=== PATIENT | male | born 1970 | race Caucasian/White ===

== ENCOUNTER 2024-04-10 12:53 | Observation (INO) | payer OTHER, SELFPAY ==
[2024-04-10] VITALS (7 sets, daily range): BP systolic 132–152; BP diastolic 88–99; PULSE 75–103; RESP 18; TEMP 36.4–36.6; O2SAT 98–99; BMI 30.4
[2024-04-10 15:45] LABS: Absolute Neutrophil Count 10.1 X10^3/uL (2.0-7.7); Basophil# 0.02 X10^3/uL; Basophil% 0.2 % (0-1); Eosinophil# 0.05 X10^3/uL; Eosinophils% 0.4 % (0-5); Hematocrit 42.4 % (40-54); Hemoglobin 14.6 g/dL (13.0-16.5); Lymphocyte % 10.6 % (19-41); Mean Corp Hgb Conc 34.4 g/dL (32-36); Mean Corpuscular Hgb 30.1 pg (27.0-32.0); Mean Corpuscular Volume 87.4 fL (80-94); Mean Platelet Vol. 9.2 fl (6.2-12.0); Monocyte# 1.63 X10^3/uL; Monocyte% 12.3 % (0-10); NRBC Flagged by Analyzer 0 % (0-5); Neutrophil # 10.07 X10^3/uL (2.7-7.7); POSITIVE DIFFERENTIAL YES; Platelet Count 225 K/mm3 (150-450); RBC Distribution Width CV 12.4 % (11.6-14.6); Red Blood Count 4.85 M/mm3 (4.6-6.2); White Blood Count 13.2 K/mm3 (4.4-11.0)
[2024-04-10 16:06] LABS: ALB/GLOB Ratio 0.9 RATIO (0.9-2.4); AST(SGOT) 13 U/L (15-37); Alanine Aminotransfer ALT/SGPT 25 U/L (16-61); Albumin, Serum 3.6 g/dL (3.2-5.0); Alkaline Phosphatase 122 U/L (45-117); Anion Gap 10 (5-15); BUN 16 mg/dL (7-18); BUN/Creat Ratio 19.1 RATIO (10-20); Calcium,Total 8.9 mg/dL (8.5-10.1); Chloride 104 mmol/L (98-107); Creatinine, Serum 0.84 mg/dL (0.70-1.30); EST Glomerular Filtration Rate 101 mL/min (>60); Est Glom Filt Rate - Afr Amer 122 mL/min (>60); Glucose 90 mg/dL (74-106); Potassium 3.7 mmol/L (3.5-5.1); Protein, Total 7.6 g/dL (6.4-8.2); Sodium Level 135 mmol/L (136-145)
[2024-04-10 16:14] LABS: Mucous, Urine 0 SEEN /hpf (<or=2+); Squamous Epithelial Cells - UA 0 SEEN /hpf (0-5)
[2024-04-10 16:16] LABS: Color, Urine Yellow (Yellow); Glucose, Dipstick Normal (Normal); Ketone-Dipstick 5 mg/dl (Negative); Leukocyte Esterase-Dipstick Negative /ul (Negative); Nitrite-Dipstick Negative (Negative); Occult Blood-Urine 25 /ul (Negative); Protein-Dipstick 30 mg/dl (Negative); Specific Gravity, Urine 1.015 (1.002-1.030); Urine Bilirubin Dipstick Negative (Negative); Urine Clarity Sl. Cloudy (Clear); Urine Urobilinogen 1 mg/dl (Normal)
--- NOTE | 2024-04-10 16:16 | CT_ITS ---
We are attempting to reach an attending provider to discuss findings. An addendum with communication details will be sent when the communication is complete. STUDY: CT ABDOMEN AND PELVIS WITH CONTRAST REASON FOR EXAM: Male, 54 years old. RLQ pain, distention, vomiting RADIATION DOSAGE (If Supplied By Facility): CTDIvol = ( 14.82 ) mGy, DLP = ( 1130.35 ) mGycm TECHNIQUE: Transaxial images were obtained from the dome of the diaphragm to the symphysis pubis without oral contrast. IV 100mL Isovue-300 was administered. Sagittal and coronal images were reconstructed. Individualized dose optimization techniques were used for this CT. The protocol utilizes one or more of the following dose reduction techniques: automated exposure control, adjustment of mA and/or kV according to patient size,and/or use of iterative reconstruction technique. COMPARISON: None. FINDINGS: Bibasilar subsegmental atelectasis. The visualized portions of the heart are within normal limits. Normal liver. Normal gallbladder and extrahepatic biliary system. Normal spleen. Normal pancreas. Normal bilateral adrenal glands. Normal right kidney. Normal left kidney. Small hiatal hernia. Air-fluid levels small bowel. Air-fluid levels in the colon. There is a tubular, thick-walled appendix (>7mm), consistent with acute appendicitis. Calcified plaque along the aorta and its branches. Retroaortic left renal vein. Normal inferior vena cava. Normal retroperitoneum. Normal urinary bladder. Surgical clips anterior to the bladder noted. Fat-containing left inguinal hernia. Normal abdominal wall. Normal osseous structures. CT/Abdomen/Pelvis W IV Cont ONLY IMPRESSION: Acute appendicitis without evidence of perforation or abscess. Electronically Signed: Dom Fragoso MD at 18:04 EDT ,
[2024-04-10 16:18] LABS: Differential Indicated SCAN CRITERIA MET
[2024-04-10 16:22] LABS: Bacteria RARE /hpf (None Seen); Red Blood Cells-Urine 0-5 SEEN /hpf (0-5); White Blood Cells 0-5 SEEN /hpf (0-5)
[2024-04-10] MEDS: morphine 8 MG/ML Syringe 6 MG IV (16:24)
[2024-04-10] MEDS: 0.9% Normal Saline (1000mL) 1,000 ML 150 ML IV (16:24)
[2024-04-10] MEDS: Ondansetron 4 MG/2 ML Vial IV (16:24)
--- NOTE | 2024-04-10 16:26 | ED.VIS.GI ---
HPI HPI - GI History of Present Illness Chief Complaint: Abd Pain Informant: patient Narrative Narrative: Patient is a 54-year-old male with history of (he believes left) inguinal hernia repair presenting with worsening abdominal pain for the past 2 days. Patient states that at 2:30 AM on Wednesday morning he woke up because the stomach felt weird and he had vomiting. He is small bowel movement this time. He notes since then he has been having progressively worsening abdominal pain mostly in his right lower quadrant. His abdomen feels distended. He tried a suppository today and only has slight bowel movement. Does note his urine has been darker. He took some Advil for symptoms with no significant relief. He has felt a little feverish but his is checked his temperature and he is not actually had a fever. Today he has had increased pain. He states every 45 minutes he had waves of sharp pain. Is in his right lower quadrant does not radiate. He is continue to have nausea. He notes that 3 weeks ago he had an episode of what he believes to be food poisoning as he had multiple signs of vomiting and some mild diarrhea. He thought maybe that is what was happening again today. No other complaints or concerns reported at this time. [facility] Home Medications ?Medication ?Instructions ?Recorded ?Last Taken ?Type NK 04/10/24 Unknown History Allergy/AdvReac Type Severity Reaction Status Date / Time No Known Allergies Allergy Verified 04/10/24 12:57 Surgical History H/O left inguinal hernia repair Social History Smoking Status: Never smoker ROS ROS ED Constitutional Constitutional ED: Reports sweats; Denies chills or fever(s) Cardiovascular Cardiovascular: Denies chest pain Respiratory/Chest Respiratory/Chest: Denies cough Gastrointestinal Gastrointestinal: Reports abdominal pain, constipation, nausea and vomiting; Denies diarrhea or melena Genitourinary Genitourinary ED: Denies dysuria, hematuria or urinary frequency Musculoskeletal Musculoskeletal: Denies arthralgias or myalgias Integumentary Denies rash Neurologic Neurologic: Denies headache(s), paresthesias or weakness Hematologic/Lymphatic Hematologic/Lymphatic: Denies easy bleeding EXAM Physical Exam Const Vital Signs: 04/10/24 12:54 04/10/24 14:54 04/10/24 16:00 Temperature 97.9 F Temperature Source Oral Pulse Rate 103 H 101 H 76 Respiratory Rate 18 18 18 Blood Pressure 152/92 H 138/96 H 142/99 H Blood Pressure Mean 112 110 113 Pulse Ox 98 99 99 Oxygen Delivery Method Room Air 04/10/24 18:00 04/10/24 20:00 04/10/24 22:00 Temperature Temperature Source Pulse Rate 87 75 Respiratory Rate 18 18 Blood Pressure 132/89 H 134/97 H 134/88 H Blood Pressure Mean 103 109 103 Pulse Ox 98 Oxygen Delivery Method 04/10/24 23:00 Temperature 97.5 F L Temperature Source Pulse Rate 75 Respiratory Rate 18 Blood Pressure 134/88 H Blood Pressure Mean 103 Pulse Ox 98 Oxygen Delivery Method Positive well nourished and well developed General Appearance ED: well developed and NAD; Negative for pallor HEENT Reports dry mucous membranes Mouth ED: Yes dry mucous membranes Mouth: dry mucous membranes Eyes PERRL Neck supple Resp normal respiratory effort and clear to auscultation bilaterally Cardio regular rhythm Rate: tachycardic GI GI Narrative: Distended abdomen. Positive rebound tenderness. No rigidity. Hypoactive bowel sounds overall with high-pitched bowel sounds noted on the left lower quadrant. No overlying skin changes appreciated. Extremity full ROM General Extremety ED: Negative for edema General Extremity: Negative for edema Neuro Sensorium / Orientation: alert, oriented to person, oriented to place and oriented to time Motor Exam: Negative for general weakness Psych mental status grossly normal and thought process normal Skin no wounds General Skin Exam: Negative for jaundice or pallor MDM MDM MDM Narrative Medical decision making narrative: Patient is evaluated for worsening right lower quadrant abdominal pain. Patient has a distended peritoneal abdomen. Differential includes small bowel obstruction, perforated appendicitis, acute appendicitis, colitis, volvulus and ischemic bowel. I did add on a lactate in addition to protocol orders CBC and CMP. Patient does have a leukocytosis of 13.2. Urinalysis does show 5 ketones but is not consistent with infection. CT of the abdomen and pelvis is concerning for acute appendicitis without evidence of perforation or abscess. Zosyn started for the patient. Discussed the case with surgery on-call, Dr. Jiang. She is concerned that this is not acute appendicitis but in fact sometimes of terminal ileitis or infectious/inflammatory process of the cecum. She request a CT of the abdomen and pelvis with oral contrast to better evaluate the area. In addition patient is noted to have quite enlarged bladder on CT. Bladder scan after patient voided 400 cc shows approximately 800 cc. Ball catheter is placed. Turns out patient has been having symptoms of BPH with urinary frequency and hesitancy for the past year. Patient has over 600 cc of fluid out after Ball catheter placed. Repeat CT continues to show acute inflammation of the right lower quadrant with no perforation or abscess. Differential still includes inflammatory bowel disease and appendicitis. There is an ileus. General surgery at this time does not feel that this is an acute surgical process and recommends treatment with antibiotics, admission to medicine and also GI consult. Case discussed with Dr. Spencer as well as Dr. Tan, hospitalist. Patient is given further pain control with morphine and Toradol in the emergency room. Is placed on maintenance fluids. Discussed case and plan of care with patient and his . Lab Data Attestation: I reviewed the patient's lab results. Labs: Laboratory Results - last 24 hr 04/10/24 04/10/24 04/10/24 15:25 16:05 16:09 WBC 13.2 H RBC 4.85 Hgb 14.6 Hct 42.4 MCV 87.4 MCH 30.1 MCHC 34.4 RDW Std Deviation 40.0 RDW Coeff of Citlali 12.4 Plt Count 225 MPV 9.2 Immature Gran % (Auto) 0.500 Neut % (Auto) 76.0 H Lymph % (Auto) 10.6 L [place] % (Auto) 12.3 H Eos % (Auto) 0.4 Baso % (Auto) 0.2 Absolute Neuts (auto) 10.1 H Absolute Lymphs (auto) 1.40 Nucleated RBC % 0 Diff Path Review May foll Sodium 135 L Potassium 3.7 Chloride 104 Carbon Dioxide 22.0 Anion Gap 10 BUN 16 Creatinine 0.84 Estim Creat Clear Calc 107.50 Est GFR (MDRD) Af Amer 122 Est GFR (MDRD) Non-Af 101 BUN/Creatinine Ratio 19.1 Glucose 90 Lactic Acid 1.0 Calcium 8.9 Magnesium 2.1 Total Bilirubin 1.20 H AST 13 L ALT 25 Alkaline Phosphatase 122 H Total Protein 7.6 Albumin 3.6 Globulin 4.0 Albumin/Globulin Ratio 0.9 Lipase 21 Urine Color Yellow Urine Clarity Sl. Cloudy Urine pH 6.0 Ur Specific [facility] 1.015 Urine Protein 30 H Urine Glucose (UA) Normal Urine Ketones 5 H Urine Occult Blood 25 H Urine Nitrite Negative Urine Bilirubin Negative Urine Urobilinogen 1 H Ur Leukocyte Esterase Negative Urine RBC 0-5 SEEN Urine WBC 0-5 SEEN Ur Squamous Epith Cells 0 SEEN Urine Bacteria RARE Urine Mucus 0 SEEN Radiography Diagnostic Testing: Clinical Impression(s) from Imaging Studies Abdomen/Pelvis CT 04/10/24 16:16 IMPRESSION: Acute appendicitis without evidence of perforation or abscess. Electronically Signed: Dom Fragoso MD at 18:04 EDT Reading Location ID and State: [address] [place] [address] Tel , Service support , ADDENDUM: 04/10/24 1817 IMPRESSION: Acute appendicitis without evidence of perforation or abscess. N.B. : The above Results were Read Back by Dom Fragoso MD to Shyann Lorenz DO, and understanding confirmed on 04/10/2024 18:10:13 (ET). Electronically Signed: Dom Fragoso MD at 18:04 EDT Reading Location ID and State: [employer] [place] Tel , Service support , ADDENDUM: 04/10/24 1847 IMPRESSION: undefined Abdomen CT 04/10/24 21:10 IMPRESSION: Acute inflammation right lower quadrant again noted essentially unchanged. Suboptimal opacification of the appendiceal lumen. Repeat scans through the right lower quadrant may be helpful. No evidence of perforation or abscess. Differential considerations still include both inflammatory bowel disease and appendicitis. Ileus. Electronically Signed: Dom Fragoso MD at 22:43 EDT Reading Location ID and State: [employer] / [place] Tel , Service support , Management Discussion w/another healthcare provider: Hospitalist and Educational Consultant Discharge Plan Triage Chief Complaint: Abd Pain ED Provider: Shyann Lorenz Dx/Rx/DC Orders Clinical Impression: Appendicitis, Ileitis, terminal, Urinary retention, Leukocytosis Primary Care Provider: Care Physician,No Primary Disposition Disposition: Acute Care Hospital [facility]
[2024-04-10 16:54] LABS: Lipase 21 U/L (13-75)
[2024-04-10] MEDS: Piperacil/Tazobactam 3.375 GM in 0.9% Normal Saline (50mL MB+) 50 ML IV (17:31)
--- NOTE | 2024-04-10 21:10 | CT_ITS ---
STUDY: CT ABDOMEN AND PELVIS WITHOUT CONTRAST REASON FOR EXAM: Male, 54 years old. RLQ pain, further eval appy RADIATION DOSAGE (If Supplied By Facility): CTDIvol = ( 10.62 ) mGy, DLP = ( 628.76 ) mGycm TECHNIQUE: Transaxial images were obtained from the dome of the diaphragm to the symphysis pubis without oral contrast, and without intravenous contrast. Sagittal and coronal images were reconstructed. Individualized dose optimization techniques were used for this CT. The protocol utilizes one or more of the following dose reduction techniques: automated exposure control, adjustment of mA and/or kV according to patient size,and/or use of iterative reconstruction technique. COMPARISON: 4:[address] abdomen and pelvis FINDINGS: The visualized lung bases are unremarkable. The visualized portions of the heart are within normal limits. Normal liver. Gallbladder sludge. Normal spleen. Normal pancreas. Normal bilateral adrenal glands. Normal right kidney. Normal left kidney. Small hiatal hernia. Oral contrast within the Small bowel with multiple air-fluid levels. Multiple air-fluid levels noted in the small bowel. There is narrowing of the ileum which may represent a stricture. The distal ileum appears circumferentially thickened. There is faint oral contrast in the cecum. Appendix appears somewhat enlarged and is not entirely opacified. There is local extensive stranding of the fat. There may be a small amount of free fluid in the lateral conal fascia. Multiple air-fluid levels are noted throughout the colon. Calcified plaque along the aorta and its branches. Normal inferior vena cava. Normal retroperitoneum. Retroaortic left renal vein. Bladder is decompressed. Oral contrast is noted in the bladder. Fat-containing bilateral inguinal hernias. Surgical clips anterior pelvic wall. Normal abdominal wall. Normal osseous structures. CT/Abdomen/Pel W ORAL Cont Only IMPRESSION: Acute inflammation right lower quadrant again noted essentially unchanged. Suboptimal opacification of the appendiceal lumen. Repeat scans through the right lower quadrant may be helpful. No evidence of perforation or abscess. Differential considerations still include both inflammatory bowel disease and appendicitis. Ileus. Electronically Signed: Dom Fragoso MD at 22:43 EDT ,
--- NOTE | 2024-04-10 21:23 | CON.PCM.SX_ITS ---
Assessment & Plan Assessment/Plan (1) Ileitis, terminal: (2) Appendicitis: (3) Urinary retention: PLAN: Plan Currently getting a CT scan with p.o. contrast see if that helps better identify the inflammation to discern whether this is more than just acute appendicitis as the terminal ileum as well as cecum are inflamed. Did review the for CT and abdomen pelvis with the patient and his . Discussed that currently I think the cecum and terminal ileum were also inflamed so likely the process may be larger process than just appendicitis. Also discussed that how we treat appendicitis surgically is staple across the base and with inflammation of the cecum as well as the terminal ileum that would not be able to be done and typically we treated with antibiotics as if we stapled across inflamed tissue it would dehisce/leak. Patient and his are agreeable with plan. May also consider having GI see the patient depending on repeat CT read but would continue IV Zosyn. Addendum: Patient's repeat CAT scan with p.o. contrast does again shows a thickening of the cecum as well as terminal ileum and appendix. Recommend conservative management and GI consult. Sulema Jiang M.D. Pager: [phone] [facility] [address] [place] [address], [facility], [address] [place] [address] Office: [phone] HPI Consult Data Date of Consult: 04/11/24 HPI Narrative HPI Narrative: TOMAS CEE, is a 54 M who presents to the ER due to right lower quadrant pain. Patient states started having pain at 2 AM on Wednesday woke him up and he did have vomiting x 1. Patient states that the pain may have been more left lower quadrant that time. Patient states that he did not eat much on Wednesday or Wednesday. Patient rated the pain as 6/10 for Wednesday. Currently states that the pain is more in the right lower quadrant comes in waves can be up to 10/10. Patient still has not been eating much. Denies any nausea or vomiting currently. Patient is never had previous colonoscopy. Patient denies any family history of colon cancer or Crohn's disease or ulcerative colitis. Patient CT abdomen pelvis which initially was called acute appendicitis however on my read the terminal ileum was also thickened along with the cecum. Did discuss with radiologist who agreed there is additional thickening of the cecum and terminal ileum as well. Patient white blood count is 13.2. Did receive Zosyn IV in the ER. Patient also initially thought he was constipated did try a suppository with no results. Patient states he has not really had a bowel movement since this started on Wednesday. Patient states normally has bowel movements daily. Patient denies any current diarrhea as well. Patient CT also showed a distended bladder patient is able to pee about 400 but still had another 5 to 600 cc upon Ball placement. Patient is reports that for the last year he is not able to have a good stream with urination. Previously?years ago?he did go to a urologist at [facility] and they gave him some medication which he did not tolerate unsure what the medication was. [facility] Home Medications ?Medication ?Instructions ?Recorded ?Last Taken ?Type NK 04/10/24 Unknown History Allergy/AdvReac Type Severity Reaction Status Date / Time No Known Allergies Allergy Verified 04/10/24 12:57 Surgical History H/O left inguinal hernia repair Social History Smoking Status: Never smoker ROS Constitutional Constitutional: Reports anorexia ENT HEENT: Denies dysphagia Cardiovascular Cardiovascular: Denies chest pain at rest Respiratory/Chest Respiratory/Chest: Denies cough Gastrointestinal Gastrointestinal: Reports abdominal pain, bloating, constipation and nausea; Denies diarrhea or vomiting Genitourinary Genitourinary: Reports difficulty urinating Musculoskeletal Musculoskeletal: Denies back pain Integumentary Integumentary: Denies jaundice Neurologic Neurologic: Denies focal weakness Psychiatric Psychiatric: Denies depression Endocrine Endocrinology: Denies palpitations Hematologic/Lymphatic Hematologic/Lymphatic: Denies easy bleeding Physical Exam Const alert, oriented x3 and no apparent distress HEENT normocephalic and head/scalp atraumatic Resp normal respiratory effort Cardio regular rate GI soft to palpation Inspection: abdominal distention Palpation: tender RLQ (Equivocal rebound); Negative for guarding Extremity no clubbing, cyanosis or edema Neuro CN's II-XII intact bilaterally Psych mental status grossly normal Lab / Micro Data 04/11/24 06:44 04/11/24 06:44 Labs: Laboratory Results - last 24 hr 04/10/24 15:25: WBC 13.2 H, RBC 4.85, Hgb 14.6, Hct 42.4, MCV 87.4, MCH 30.1, MCHC 34.4, RDW Std Deviation 40.0, RDW Coeff of Citlali 12.4, Plt Count 225, MPV 9.2, Immature Gran % (Auto) 0.500, Neut % (Auto) 76.0 H, Lymph % (Auto) 10.6 L, [place] % (Auto) 12.3 H, Eos % (Auto) 0.4, Baso % (Auto) 0.2, Absolute Neuts (auto) 10.1 H, Absolute Lymphs (auto) 1.40, Nucleated RBC % 0, Diff Path Review October, Sodium 135 L, Potassium 3.7, Chloride 104, Carbon Dioxide 22.0, Anion Gap 10, BUN 16, Creatinine 0.84, Estim Creat Clear Calc 107.50, Est GFR (MDRD) Af Amer 122, Est GFR (MDRD) Non-Af 101, BUN/Creatinine Ratio 19.1, Glucose 90, Calcium 8.9, Total Bilirubin 1.20 H, AST 13 L, ALT 25, Alkaline Phosphatase 122 H, Total Protein 7.6, Albumin 3.6, Globulin 4.0, Albumin/Globulin Ratio 0.9, Lipase 21 04/10/24 16:05: Lactic Acid 1.0 04/10/24 16:09: Urine Color Yellow, Urine Clarity Sl. Cloudy, Urine pH 6.0, Ur Specific [place] 1.015, Urine Protein 30 H, Urine Glucose (UA) Normal, Urine Ketones 5 H, Urine Occult Blood 25 H, Urine Nitrite Negative, Urine Bilirubin Negative, Urine Urobilinogen 1 H, Ur Leukocyte Esterase Negative, Urine RBC 0-5 SEEN, Urine WBC 0-5 SEEN, Ur Squamous Epith Cells 0 SEEN, Urine Bacteria RARE, Urine Mucus 0 SEEN Imaging Radiology Impression Abdomen/Pelvis CT 04/10/24 16:16 IMPRESSION: Acute appendicitis without evidence of perforation or abscess. Electronically Signed: Dom Fragoso MD at 18:04 EDT , ADDENDUM: 04/10/241816 IMPRESSION: Acute appendicitis without evidence of perforation or abscess. N.B. : The above Results were Read Back by Dom Fragoso MD to Shyann Lorenz DO, and understanding confirmed on 04/10/2024 18:10:13 (ET). Electronically Signed: Dom Fragoso MD at 18:04 EDT Reading Location ID and State: [facility] / [place] Tel , Service support , ADDENDUM: 04/10/24 1847 IMPRESSION: undefined Charges/Coding Visit Charges Inpatient E&M: 64865 Init Hosp L3
--- NOTE | 2024-04-10 23:22 | HP.PCM.HOS_ITS ---
HPI - General General Date of Admission: 04/10/24 Date of Service: 04/10/24 Chief Complaint: RLQ abdominal pain since Wednesday morning. HPI Narrative TOMAS CEE, is a 54 M came to ED with sudden onset of right lower quadrant abdominal pain that woke him up with one-time vomiting. The abdominal pain persisted on Wednesday and Wednesday therefore he came to ED. It is 5-6/10 intensity, intermittent, colicky in nature without radiation. Patient had a small bowel movement on Wednesday and Wednesday but not today. Patient had left inguinal surgery in the past. No fever or chills. Denies any previous colonoscopy or EGD. Denies prior GI diagnoses like Crohn's disease, ulcerative colitis, celiac disease or other autoimmune disease Patient is stated about 3 weeks ago he ate lunch in the latter-day and got sick after 3 hours but it got better in next 2 to 3 days. Never was admitted for abdominal pain of the symptoms In ED patient had CT abdomen discussing assessment plan. Seen by surgeon Dr. Jiang and he states cecum and terminal ileum along with appendix is inflamed. Recommended GI consult Social history: Patient does not smoke cigarette but chews nicotine tobacco. Denies drinking alcohol or substance use. Family history: Denies chronic GI disease or autoimmune disease in first-degree family relative. REPLACED BY [facility] Home Medications ?Medication ?Instructions ?Recorded ?Last Taken ?Type NK 04/10/24 Unknown History Allergy/AdvReac Type Severity Reaction Status Date / Time No Known Allergies Allergy Verified 04/10/24 12:57 Surgical History H/O left inguinal hernia repair Social History Smoking Status: Never smoker ROS ROS Narrative Constitutional: Reports acute onset fatigue and weakness. No fever. HEENT: Reports systems reviewed and no addt'l complaints, except as documented Respiratory/Chest: No acute shortness of breath or respiratory distress or wheezing. CVS: No chest pain or pressure or tach Gastrointestinal: Denies GI bleed. Rest as described in HPI. Genitourinary: Incomplete emptying of bladder, acute retention of urine. Denies burning pain. Musculoskeletal: Denies acute joint pain or limited range of motion. No acute injury Neurologic: Denies seizure-like symptoms. skin: No ulcer. No rash Endocrinology: Reports systems reviewed and no addt'l complaints, except as documented Hematologic/Lymphatic: Reports systems reviewed and no addt'l complaints, except as documented Rest 14 ROS are negative except as mentioned in HPI Vital Signs Vital Signs Vital Signs: 04/10/24 12:54 04/10/24 14:54 04/10/24 16:00 Temperature 97.9 F Temperature Source Oral Pulse Rate 103 H 101 H 76 Respiratory Rate 18 18 18 Blood Pressure 152/92 H 138/96 H 142/99 H Blood Pressure Mean 112 110 113 Pulse Ox 98 99 99 Oxygen Delivery Method Room Air 04/10/24 18:00 04/10/24 20:00 04/10/24 22:00 Temperature Temperature Source Pulse Rate 87 75 Respiratory Rate 18 18 Blood Pressure 132/89 H 134/97 H 134/88 H Blood Pressure Mean 103 109 103 Pulse Ox 98 Oxygen Delivery Method Weight Weight: 200 lb 6.4 oz Body Mass Index (BMI) 30.4 Physical Exam Narrative General: Alert, Oriented x3, Cooperative HEENT: Atraumatic, PERRLA, EOMI, Normocephalic Oral: Oral mucosa dry. No Gingival or Mucosal Lesions/ Ulcerations Neck: Supple, No JVD, Negative Carotid Bruits Chest wall/Lungs: Air entry equal in bilateral lung bases. No crepitation/rhonchi Cardiovascular: Regular rate, Regular Rhythm, Normal S1, Normal S2, No M/G/R Abdomen: Tenderness and guarding present in RLQ. Bowel sounds hyperactive : Spontaneous voiding 400 mL but incomplete emptying, 500-600 mL upon Ball catheter placement no renal angle tenderness. No suprapubic tenderness. Extremities: No edema, Capillary Refill Less than 3 Seconds Skin: No rashes, No breakdown Musculoskeletal: No Tenderness to Palpation of Joints or Extremities Neurological: Cranial nerves II-XII grossly intact, DTR 2+/4. No acute focal neurological deficit. Psych/Mental Status: Normal Affect, Appropriate. Results Lab / Micro Data 04/10/24 15:25 04/10/24 15:25 Labs: Laboratory Results - last 24 hr 04/10/24 15:25: WBC 13.2 H, RBC 4.85, Hgb 14.6, Hct 42.4, MCV 87.4, MCH 30.1, MCHC 34.4, RDW Std Deviation 40.0, RDW Coeff of Citlali 12.4, Plt Count 225, MPV 9.2, Immature Gran % (Auto) 0.500, Neut % (Auto) 76.0 H, Lymph % (Auto) 10.6 L, [place] % (Auto) 12.3 H, Eos % (Auto) 0.4, Baso % (Auto) 0.2, Absolute Neuts (auto) 10.1 H, Absolute Lymphs (auto) 1.40, Nucleated RBC % 0, Diff Path Review October, Sodium 135 L, Potassium 3.7, Chloride 104, Carbon Dioxide 22.0, Anion Gap 10, BUN 16, Creatinine 0.84, Estim Creat Clear Calc 107.50, Est GFR (MDRD) Af Amer 122, Est GFR (MDRD) Non-Af 101, BUN/Creatinine Ratio 19.1, Glucose 90, Calcium 8.9, Total Bilirubin 1.20 H, AST 13 L, ALT 25, Alkaline Phosphatase 122 H, Total Protein 7.6, Albumin 3.6, Globulin 4.0, Albumin/Globulin Ratio 0.9, Lipase 21 04/10/24 16:05: Lactic Acid 1.0 04/10/24 16:09: Urine Color Yellow, Urine Clarity Sl. Cloudy, Urine pH 6.0, Ur Specific [place] 1.015, Urine Protein 30 H, Urine Glucose (UA) Normal, Urine Ketones 5 H, Urine Occult Blood 25 H, Urine Nitrite Negative, Urine Bilirubin Negative, Urine Urobilinogen 1 H, Ur Leukocyte Esterase Negative, Urine RBC 0-5 SEEN, Urine WBC 0-5 SEEN, Ur Squamous Epith Cells 0 SEEN, Urine Bacteria RARE, Urine Mucus 0 SEEN Imaging Radiology Impression Abdomen/Pelvis CT 04/10/24 16:16 IMPRESSION: Acute appendicitis without evidence of perforation or abscess. Electronically Signed: Dom Fragoso MD at 18:04 EDT , ADDENDUM: 04/10/241816 IMPRESSION: Acute appendicitis without evidence of perforation or abscess. N.B. : The above Results were Read Back by Dom Fragoso MD to Shyann Lorenz DO, and understanding confirmed on 04/10/2024 18:10:13 (ET). Electronically Signed: Dom Fragoso MD at 18:04 EDT Reading Location ID and State: [facility] / [place] Tel , Service support , ADDENDUM: 04/10/24 1847 IMPRESSION: undefined Abdomen CT 04/10/24 21:10 IMPRESSION: Acute inflammation right lower quadrant again noted essentially unchanged. Suboptimal opacification of the appendiceal lumen. Repeat scans through the right lower quadrant may be helpful. No evidence of perforation or abscess. Differential considerations still include both inflammatory bowel disease and appendicitis. Ileus. Electronically Signed: Dom Fragoso MD at 22:43 EDT , Assessment & Plan Assessment/Plan (1) Ileitis, terminal: (2) Urinary retention: PLAN: Plan This is 54-year-old gentleman being admitted for right lower quadrant abdominal pain for last 3 days along with vomiting and no BM for 1 day 1. Acute inflammation of distal ileum, typhlitis and appendicitis CT abdomen with oral and IV contrast individually reviewed. Shows multiple loops of air distended small bowel loops, inflammation of distal ileum with circumferential thickening, appendix enlarged with mesoappendix infiltration of fat and typhlitis. Patient already evaluated by surgeon and thinks it is more right- sided inflammation as mentioned therefore treat medically with IV antibiotics. GI consult requested. On IV Zosyn. Continue IV fluid. N.p.o. 2. History of left inguinal hernia repair: No clinical issues on left lower quadrant 3. Chronic nicotine use, chews tobacco: Offered nicotine. 4. DVT prophylaxis, moderate risk Lovenox 40 mg subcu daily Living will/advanced directive/end of life care: Patient does not have living will or advanced directive. He does not have daycare power of real estate attorney for health after discussion of benefits/risks procedures involved with full code, DNR CC arrest and DNR CC, the patient opted for full code. Patient does want artificial life support including intubation, tube feed, ventilator and/chest compression, central venous catheter, vasopressor and DC shock if needed Total time spent in [id number] encounter in discussion of advanced directive 17 minutes. Charges/Coding Visit Charges Inpatient E&M: 19146 Init Hosp L3 Procedures Hospitalists Procedures: 96906 Advncd Care Plan 30 Min
[2024-04-10] MEDS: Ketorolac 15 MG/ML Vial IV (23:29)
[2024-04-10] MEDS: Morphine 4 MG/ML Syringe IV (23:30)
[2024-04-10 23:56] LABS: Magnesium 2.1 mg/dL (1.6-2.6)
[2024-04-11 02:22] VITALS: BMI 30.4
[2024-04-11 02:34] VITALS: BP 131/84; PULSE 71; RESP 16; TEMP 36.6; O2SAT 98
[2024-04-11] MEDS: KCL 20MEQ in 0.9% NS 20 MEQ/1,000 ML IV.SOLN. 100 MEQ IV (02:49)
[2024-04-11] MEDS: Pantoprazole Sodium 40 MG in 0.9% Normal Saline (100mL MB+) 100 ML 330 MG IV (02:56)
[2024-04-11] MEDS: Piperacil/Tazobactam 3.375 GM in 0.9% Normal Saline (50mL MB+) 50 ML IV ×2 (05:29→14:27)
[2024-04-11 07:35] LABS: Absolute Lymphocyte Count 1.55 X10^3/uL (0.83-4.51); Absolute Neutrophil Count 6.3 X10^3/uL (2.0-7.7); Basophil# 0.03 X10^3/uL; Basophil% 0.3 % (0-1); Eosinophils% 1.1 % (0-5); Hemoglobin 12.8 g/dL (13.0-16.5); Lymphocyte # 1.55 X10^3/ul (0.83-4.51); Lymphocyte % 16.6 % (19-41); Mean Corp Hgb Conc 34.6 g/dL (32-36); Mean Corpuscular Hgb 30.6 pg (27.0-32.0); Mean Corpuscular Volume 88.5 fL (80-94); Mean Platelet Vol. 9.3 fl (6.2-12.0); Monocyte# 1.29 X10^3/uL; Monocyte% 13.8 % (0-10); NRBC Flagged by Analyzer 0 % (0-5); Neutrophil # 6.31 X10^3/uL (2.7-7.7); Neutrophil % 67.8 % (47-70); Platelet Count 222 K/mm3 (150-450); RBC Distribution Width CV 12.5 % (11.6-14.6); RBC Distribution Width SD 40.3 fl (35.1-43.9); Red Blood Count 4.18 M/mm3 (4.6-6.2); White Blood Count 9.3 K/mm3 (4.4-11.0)
[2024-04-11 07:54] LABS: Anion Gap 7 (5-15); BUN 17 mg/dL (7-18); BUN/Creat Ratio 19.9 RATIO (10-20); Calcium,Total 8.5 mg/dL (8.5-10.1); Chloride 110 mmol/L (98-107); Creatinine, Serum 0.85 mg/dL (0.70-1.30); EST Glomerular Filtration Rate 99 mL/min (>60); Est Glom Filt Rate - Afr Amer 119 mL/min (>60); Estimated Creatinine Clearance 106.29 ml/min; Glucose 84 mg/dL (74-106); Potassium 3.7 mmol/L (3.5-5.1); Sodium Level 139 mmol/L (136-145)
--- NOTE | 2024-04-11 08:34 | PCM.PN.SRG ---
Objective Data Objective Data Vital Signs: Vital Signs Temp Pulse Resp BP Pulse Ox O2 Del Method 97.9 F 71 16 131/84 H 98 Room Air 04/11/24 02:34 04/11/24 02:34 04/11/24 02:34 04/11/24 02:34 04/11/24 02:34 04/11/24 02:34 Oxygen Delivery Method Room Air Weight: 200 lb 9.93 oz Body Mass Index (BMI) 30.4 Intake & Output: Intake and Output for Last 24 Hours 04/09/24 04/10/24 04/11/24 23:59 23:59 23:59 Intake Total 1050 / 1050 110 / 110 Balance 1050 / 1050 110 / 110 Lab / Micro Data 04/11/24 06:44 04/11/24 06:44 Labs: Laboratory Results - last 24 hr 04/10/24 15:25: WBC 13.2 H, RBC 4.85, Hgb 14.6, Hct 42.4, MCV 87.4, MCH 30.1, MCHC 34.4, RDW Std Deviation 40.0, RDW Coeff of Citlali 12.4, Plt Count 225, MPV 9.2, Immature Gran % (Auto) 0.500, Neut % (Auto) 76.0 H, Lymph % (Auto) 10.6 L, [place] % (Auto) 12.3 H, Eos % (Auto) 0.4, Baso % (Auto) 0.2, Absolute Neuts (auto) 10.1 H, Absolute Lymphs (auto) 1.40, Nucleated RBC % 0, Diff Path Review October, Sodium 135 L, Potassium 3.7, Chloride 104, Carbon Dioxide 22.0, Anion Gap 10, BUN 16, Creatinine 0.84, Estim Creat Clear Calc 107.50, Est GFR (MDRD) Af Amer 122, Est GFR (MDRD) Non-Af 101, BUN/Creatinine Ratio 19.1, Glucose 90, Calcium 8.9, Magnesium 2.1, Total Bilirubin 1.20 H, AST 13 L, ALT 25, Alkaline Phosphatase 122 H, Total Protein 7.6, Albumin 3.6, Globulin 4.0, Albumin/Globulin Ratio 0.9, Lipase 21 04/10/24 16:05: Lactic Acid 1.0 04/10/24 16:09: Urine Color Yellow, Urine Clarity Sl. Cloudy, Urine pH 6.0, Ur Specific [place] 1.015, Urine Protein 30 H, Urine Glucose (UA) Normal, Urine Ketones 5 H, Urine Occult Blood 25 H, Urine Nitrite Negative, Urine Bilirubin Negative, Urine Urobilinogen 1 H, Ur Leukocyte Esterase Negative, Urine RBC 0-5 SEEN, Urine WBC 0-5 SEEN, Ur Squamous Epith Cells 0 SEEN, Urine Bacteria RARE, Urine Mucus 0 SEEN 04/11/24 06:44: WBC 9.3, RBC 4.18 L, Hgb 12.8 L, Hct 37.0 L, MCV 88.5, MCH 30.6, MCHC 34.6, RDW Std Deviation 40.3, RDW Coeff of Citlali 12.5, Plt Count 222, MPV 9.3, Immature Gran % (Auto) 0.400, Neut % (Auto) 67.8, Lymph % (Auto) 16.6 L, [place] % (Auto) 13.8 H, Eos % (Auto) 1.1, Baso % (Auto) 0.3, Absolute Neuts (auto) 6.3, Absolute Lymphs (auto) 1.55, Nucleated RBC % 0, Sodium 139, Potassium 3.7, Chloride 110 H, Carbon Dioxide 22.0, Anion Gap 7, BUN 17, Creatinine 0.85, Estim Creat Clear Calc 106.29, Est GFR (MDRD) Af Amer 119, Est GFR (MDRD) Non-Af 99, BUN/Creatinine Ratio 19.9, Glucose 84, Calcium 8.5 Radiography Diagnostic Testing: Radiology Impression Abdomen/Pelvis CT 04/10/24 16:16 IMPRESSION: Acute appendicitis without evidence of perforation or abscess. Electronically Signed: Dom Fragoso MD at 18:04 EDT Reading Location ID and State: [address] [place] [address] Tel , Service support , ADDENDUM: 04/10/241816 IMPRESSION: Acute appendicitis without evidence of perforation or abscess. N.B. : The above Results were Read Back by Dom Fragoso MD to Shyann Lorenz DO, and understanding confirmed on 04/10/2024 18:10:13 (ET). Electronically Signed: Dom Fragoso MD at 18:04 EDT , ADDENDUM: 04/10/24 1847 IMPRESSION: undefined Abdomen CT 04/10/24 21:10 IMPRESSION: Acute inflammation right lower quadrant again noted essentially unchanged. Suboptimal opacification of the appendiceal lumen. Repeat scans through the right lower quadrant may be helpful. No evidence of perforation or abscess. Differential considerations still include both inflammatory bowel disease and appendicitis. Ileus. Electronically Signed: Dom Fragoso MD at 22:43 EDT ,
[2024-04-11 08:53] VITALS: BP 129/79; PULSE 71; RESP 16; TEMP 36.6; O2SAT 95
[2024-04-11] MEDS: Tamsulosin HCl 0.4 MG Capsule PO (09:14)
--- NOTE | 2024-04-11 10:52 | CASEMGMT ---
ALMA HODGES Assessment Face to Face with patient for initial transition planning/care coordination assessment. ALMA HODGES introduced self and role at [facility], pt voices understanding. Pt is A&Ox4 and is resting comfortably in bed and is calm. Care providers, pharmacy, and demographics verified. Admitting dx: SBO LACE Strata: 1 PCP: No PCP. Provider list given Specialists:Denies. [facility] is consulted Preferred Pharmacy: [facility] Insurance: [employer] [facility] Prescription Benefit: Yes LNOK: Rona Linares (W), Artur Linares (Son) Living Arrangements: Pt lives with his in a 2 story home with 2 steps to enter ADLs/IADLs: Ind Transportation: Self, DME: BP Monitor. Pox. Pt has access to a W/C, FWW, and cane but does not use HHC/SNF: Denies history or needs Pt?s goal: Home Plan: Home no needs. 6-Click score is 24. Pt denies needs or concerns moving forward and states that he feels safe returning home with his once he is medically ready. David Alas RN, CM
--- NOTE | 2024-04-11 12:11 | DCINST_ITS ---
Discharge Instructions Diet Discharge Diet: Light diet - advance as tolerated Activity Discharge Activity: Return to Normal Activity Dressing / Incision Call your doctor if you observe: - (Increased pain, fever) Follow Up Care Please Follow Up With: Sulema Jiang MD When: Please contact [phone], option #2 to schedule a follow-up appointment for 1 week Test Results: Test results from this visit will be discussed in further detail at your follow- up appointment, if applicable. Discharge Plan Admission Admit Date/Time: 04/10/24 23:22 Attending Provider: Aneta Lyles Primary Care Provider: Care Physician,No Primary Consulting Providers: Jason Tan Discharge Orders/Prescriptions Prescriptions: New amoxicillin-pot clavulanate 875-125 mg tablet 1 tab PO BID 14 Days Qty: 28 0RF Referrals / Follow Up: Matthew Spencer DO [Med Staff - Active Staff] - (Contact office to schedule a 1-2 week follow-up) Sulema Jiang MD [Med Staff - Active Staff] - 04/18/24 (Contact our office to schedule an appointment) Care Physician,No Primary [Primary Care Provider] -
[2024-04-11 14:17] LABS: Pathologist Review Reviewed
[2024-04-11 14:20] VITALS: BP 121/84; PULSE 75; RESP 16; TEMP 36.6; O2SAT 96
--- NOTE | 2024-04-11 17:14 | DS.PCM_ITS ---
Providers Date of Admission: 04/10/24 Date of Discharge: 04/11/24 Primary Care Physician: Carina Primary Care Phys Consultations 04/11/24 02:21 Consult: Gastroenterology Routine Consulting Provider: Marisela Jimenez Reason for Consult: suspected IBD, Terminal ilitis/stricture EMERGENT Consult: No MD Notified: Yes Date Notified: 04/10/24 Time Notified: 23:29 Method of Notification: ED Physician Initiated Reason For Visit: SBO, TERMINAL ILEUM STRICTURE Diagnosis Discharge Diagnosis (1) Ileitis, terminal: Status: Acute Code(s): K50.00 - Crohn's disease of small intestine without complications (2) Appendicitis: Status: Acute Code(s): K37 - Unspecified appendicitis (3) Urinary retention: Status: Acute Code(s): R33.9 - Retention of urine, unspecified Medications at Discharge Home Medications amoxicillin 875 mg-potassium clavulanate 125 mg tablet 1 tab PO BID 14 days #28 tabs 04/11/24 tamsulosin 0.4 mg capsule 0.4 mg PO QHS 30 days #30 caps 04/11/24 Hospital Course Operations None Procedures None Summary of Care Provided Minutes Spent on Discharge: 55 Hospital Course: Patient is a 54 y/o male with a PMH as outlined who was admitted via the ED on 04/11/2024 with a complaint of sudden onset of right lower quadrant abdominal pain and vomiting. The abdominal pain started 2 days prior to admission, and was colicky in nature. It did not radiate. He had had left inguinal surgery in the past but had not had any history of colonoscopy or EGD. CT of the abdomen was concerning for acute appendicitis but general surgery saw him and thought he had inflammation of the cecum and terminal ileum as well as inflammation of the appendix. Was admitted and managed for acute terminal ileitis, typhlitis appendicitis. He was started on IV Zosyn. As stated general surgery thought it was more of a right-sided inflammation. His abdominal pain improved and he felt much better. Gastroenterology reviewed most okay with patient being discharged home. Per general surgery, they are okay with patient going home on oral antibiotics. General surgery send blood work for IBD along with blood work for vasculitis and hypercoagulable disorder and recommended that he should follow-up on outpatient basis for MR enterography and possible capsule endoscopy as well as with optimal endoscopy with biopsies. Patient was discharged home with a prescription for p.o. Augmentin as prescribed by general surgery. He is follow- up with his primary care doctor, with general surgery and with GI. Patient seen and examined prior to discharge. He had no complaints and had an uneventful night. Review of systems otherwise negative. Labs and vitals reviewed. Home medication reviewed and reconciled. Physical Exam Const alert, oriented x3 and no apparent distress General Appearance: cooperative, comfortable, well kempt and well developed Orientation / Consciousness: awake Exam Limitations: no limitations HEENT normocephalic, head/scalp atraumatic, hearing grossly normal bilaterally and moist oral mucous membranes Mouth: oral and palatal mucosa normal Eyes PERRL, EOMs intact bilaterally and conjunctivae normal Neck no lymphadenopathy and supple Lymph Lymphatic: no lymphadenopathy noted and no lymphedema noted Resp normal respiratory effort, normal air movement and clear to auscultation bilaterally Cardio regular rate, regular rhythm, S1 normal heart sound, S2 normal heart sound and no murmurs GI GI Narrative: abdomen soft, mild tenderness, no organomegaly Extremity normal to inspection, full ROM, normal capillary refill, no clubbing, cyanosis or edema and no calf tenderness General Extremity: no tenderness to palpation of joints or extremities Skin no rashes or lesions noted General Skin Exam: no breakdown Neuro oriented x3, CN's II-XII intact bilaterally, moves all extremities, no focal motor deficits, no sensory deficits noted and deep tendon reflexes 2+ bilaterally Sensorium / Orientation: awake Motor Exam: strength 5/5 throughout and general weakness Psych thought process normal and cooperative Appearance: appropriate Weight / BMI Weight Weight: 200 lb 9.93 oz Body Mass Index (BMI) 30.4 ABG / Lab / Microbiology Data 04/11/24 06:44 04/11/24 06:44 Laboratory: Laboratory Results - last 24 hr 04/10/24 15:25: Diff Path Review Reviewed, Magnesium 2.1 04/11/24 06:44: WBC 9.3, RBC 4.18 L, Hgb 12.8 L, Hct 37.0 L, MCV 88.5, MCH 30.6, MCHC 34.6, RDW Std Deviation 40.3, RDW Coeff of Citlali 12.5, Plt Count 222, MPV 9.3, Immature Gran % (Auto) 0.400, Neut % (Auto) 67.8, Lymph % (Auto) 16.6 L, M laura % (Auto) 13.8 H, Eos % (Auto) 1.1, Baso % (Auto) 0.3, Absolute Neuts (auto) 6.3, Absolute Lymphs (auto) 1.55, Nucleated RBC % 0, Sodium 139, Potassium 3.7, Chloride 110 H, Carbon Dioxide 22.0, Anion Gap 7, BUN 17, Creatinine 0.85, Estim Creat Clear Calc 106.29, Est GFR (MDRD) Af Amer 119, Est GFR (MDRD) Non-Af 99, BUN/Creatinine Ratio 19.9, Glucose 84, Calcium 8.5 Radiography Diagnostic Testing: Radiology Impression Abdomen/Pelvis CT 04/10/24 16:16 IMPRESSION: Acute appendicitis without evidence of perforation or abscess. Electronically Signed: Dom Fragoso MD at 18:04 EDT Reading Location ID and State: [address] [place] [address] Tel , Service support , ADDENDUM: 04/10/24 1817 IMPRESSION: Acute appendicitis without evidence of perforation or abscess. N.B. : The above Results were Read Back by Dom Fragoso MD to Shyann Lorenz DO, and understanding confirmed on 04/10/2024 18:10:13 (ET). Electronically Signed: Dom Fragoso MD at 18:04 EDT Reading Location ID and State: [facility] / [place] Tel , Service support , ADDENDUM: 04/10/24 1847 IMPRESSION: undefined Abdomen CT 04/10/24 21:10 IMPRESSION: Acute inflammation right lower quadrant again noted essentially unchanged. Suboptimal opacification of the appendiceal lumen. Repeat scans through the right lower quadrant may be helpful. No evidence of perforation or abscess. Differential considerations still include both inflammatory bowel disease and appendicitis. Ileus. Electronically Signed: Dom Fragoso MD at 22:43 EDT Reading Location ID and State: [facility] / [place] Tel , Service support , D/C Instructions Discharge Diet: Light diet - advance as tolerated Call your doctor if you observe: Fever of 101 or Higher and - (Increased pain, fever) Please Follow Up With: Sulema Jiang MD When: Please contact [phone], option #2 to schedule a follow-up appointment for 1 week Meaningful Use Info Meaningful Use Meaningful Use Diagnoses (Choose all that apply): None applicable Ischemic Stroke Statin Dosing Therapy Reference: STATIN DOSE THERAPY REFERENCE: * Patients > 75 years receive moderate or high dose statin therapy. * Patients 75 years or YOUNGER should receive HIGH intensity statin dose unless contraindicated. You will be required to document reason for non-treatment if statin daily dose does not meet guidelines. HIGH DOSE STATIN THERAPY DAILY Atorvastatin > than or = to 40 mg Rosuvastatin > than or = to 20 mg Amlodipine + Atorvastatin > than or = to 2.5/40 mg Ezetimibe + Simvastatin 10/80 mg Simvastatin 80mg Discharge Plan Admission Admit Date/Time: 04/10/24 23:22 Primary Reason for Your Visit: acute terminal ileitis Attending Provider: Aneta Lyles Primary Care Provider: Care Physician,No Primary Consulting Providers: Jason Tan Instructions Patient Instructions: ED Understanding Colitis Discharge Orders/Prescriptions Prescriptions: New amoxicillin-pot clavulanate 875-125 mg tablet 1 tab PO BID 14 Days Qty: 28 0RF tamsulosin 0.4 mg Capsule 0.4 mg PO QHS 30 Days Qty: 30 1RF Referrals / Follow Up: Matthew Spencer DO [Med Staff - Active Staff] - (Contact office to schedule a 1-2 week follow-up) Sulema Jiang MD [Med Staff - Active Staff] - 04/18/24 (Contact our office to schedule an appointment) Care Physician,No Primary [Primary Care Provider] - Disposition Disposition (needs filled in before D/C Order can be placed): Home, Self Care Charges/Coding Visit Charges Inpatient E&M: 85045 Disch Hosp >30min
--- NOTE | 2024-04-11 17:35 | PCM.PROGNOTE ---
Subjective Subjective Patient seen and examined. He had no active complaints. Abdominal pain had improved and he rated it at only 3/10. Review of systems was otherwise negative. Objective Data Objective Data Vital Signs: Vital Signs Temp Pulse Resp BP Pulse Ox O2 Del Method 97.9 F 75 16 121/84 H 96 Room Air 04/11/24 14:20 04/11/24 14:20 04/11/24 14:20 04/11/24 14:20 04/11/24 14:20 04/11/24 14:20 Oxygen Delivery Method Room Air Weight: 200 lb 9.93 oz Body Mass Index (BMI) 30.4 Intake & Output: Intake and Output for Last 24 Hours 04/09/24 04/10/24 04/11/24 23:59 23:59 23:59 Intake Total 1050 / 1050 160 / 160 Balance 1050 / 1050 160 / 160 Lab / Micro Data 04/11/24 06:44 04/11/24 06:44 Labs: Laboratory Results - last 24 hr 04/10/24 15:25: Diff Path Review Reviewed, Magnesium 2.1 04/11/24 06:44: WBC 9.3, RBC 4.18 L, Hgb 12.8 L, Hct 37.0 L, MCV 88.5, MCH 30.6, MCHC 34.6, RDW Std Deviation 40.3, RDW Coeff of Citlali 12.5, Plt Count 222, MPV 9.3, Immature Gran % (Auto) 0.400, Neut % (Auto) 67.8, Lymph % (Auto) 16.6 L, Lanier % (Auto) 13.8 H, Eos % (Auto) 1.1, Baso % (Auto) 0.3, Absolute Neuts (auto) 6.3, Absolute Lymphs (auto) 1.55, Nucleated RBC % 0, Sodium 139, Potassium 3.7, Chloride 110 H, Carbon Dioxide 22.0, Anion Gap 7, BUN 17, Creatinine 0.85, Estim Creat Clear Calc 106.29, Est GFR (MDRD) Af Amer 119, Est GFR (MDRD) Non-Af 99, BUN/Creatinine Ratio 19.9, Glucose 84, Calcium 8.5 Radiography Diagnostic Testing: Radiology Impression Abdomen/Pelvis CT 04/10/24 16:16 IMPRESSION: Acute appendicitis without evidence of perforation or abscess. Electronically Signed: Dom Fragoso MD at 18:04 EDT Reading Location ID and State: [address] [place] [address] Tel , Service support , ADDENDUM: 04/10/24 1817 IMPRESSION: Acute appendicitis without evidence of perforation or abscess. N.B. : The above Results were Read Back by Dom Fragoso MD to Shyann Lorenz DO, and understanding confirmed on 04/10/2024 18:10:13 (ET). Electronically Signed: Dom Fragoso MD at 18:04 EDT Reading Location ID and State: [address] [place] [address] Tel , Service support , ADDENDUM: 04/10/24 1847 IMPRESSION: undefined Abdomen CT 04/10/24 21:10 IMPRESSION: Acute inflammation right lower quadrant again noted essentially unchanged. Suboptimal opacification of the appendiceal lumen. Repeat scans through the right lower quadrant may be helpful. No evidence of perforation or abscess. Differential considerations still include both inflammatory bowel disease and appendicitis. Ileus. Electronically Signed: Dom Fragoso MD at 22:43 EDT Reading Location ID and State: [address] [place] [address] Tel , Service support , Physical Exam Const alert, oriented x3 and no apparent distress General Appearance: cooperative and well developed HEENT normocephalic, head/scalp atraumatic and moist oral mucous membranes Eyes PERRL and EOMs intact bilaterally Neck no lymphadenopathy and supple Lymph Lymphatic: no lymphadenopathy noted and no lymphedema noted Resp normal respiratory effort, normal air movement and clear to auscultation bilaterally Cardio regular rate, regular rhythm, S1 normal heart sound, S2 normal heart sound and no murmurs GI GI Narrative: abdomen soft, mild tenderness, no organomegaly Extremity normal capillary refill, no clubbing, cyanosis or edema and no calf tenderness General Extremity: no tenderness to palpation of joints or extremities Skin General Skin Exam: no breakdown Neuro CN's II-XII intact bilaterally, no focal motor deficits, no sensory deficits noted and deep tendon reflexes 2+ bilaterally Motor Exam: strength 5/5 throughout and general weakness Psych thought process normal and cooperative Appearance: appropriate Assessment & Plan Assessment/Plan (1) Appendicitis: (2) Leukocytosis: (3) Ileitis, terminal: PLAN: Plan #Acute terminal ileitis with typhlitis CT of the abdomen was also concerning for acute appendicitis though general surgery saw him and thought was more of a right-sided inflammation. Patient currently on IV Zosyn. Being hydrated with IV fluids. Patient started on clear liquid diet this morning. Await GI evaluation. Per general surgery patient can possibly be discharged home today on oral antibiotics. Will await GI evaluation. IV morphine as needed for pain wbc down to 9.3 today stool studies pending #History of left inguinal hernia repair: Stable #Nicotine dependence: Chews tobacco. Counseled to quit. DVT prophylaxis: lovenox Charges/Coding Visit Charges Inpatient E&M: 53030 Subs Hosp L2
--- NOTE | 2024-04-11 17:40 | DCINST_ITS ---
Discharge Instructions Diet Discharge Diet: Light diet - advance as tolerated Activity Discharge Activity: Return to Normal Activity Dressing / Incision Call your doctor if you observe: Fever of 101 or Higher, Shortness of breath, Swelling in the ankles, Uncontrolled pain and - (Increased pain, fever) Follow Up Care Please Follow Up With: Sulema Jiang MD Test Results: Test results from this visit will be discussed in further detail at your follow- up appointment, if applicable. Discharge Plan Admission Admit Date/Time: 04/10/24 23:22 Primary Reason for Your Visit: acute terminal ileitis Attending Provider: Aneta Lyles Primary Care Provider: Care Physician,No Primary Consulting Providers: Jason Tan Instructions Patient Instructions: ED Understanding Colitis Discharge Orders/Prescriptions Prescriptions: New amoxicillin-pot clavulanate 875-125 mg tablet 1 tab PO BID 14 Days Qty: 28 0RF tamsulosin 0.4 mg Capsule 0.4 mg PO QHS 30 Days Qty: 30 1RF Referrals / Follow Up: Matthew Spencer DO [Med Staff - Active Staff] - (Contact office to schedule a 1-2 week follow-up) Sulema Jiang MD [Med Staff - Active Staff] - 04/18/24 (Contact our office to schedule an appointment) Care Physician,No Primary [Primary Care Provider] - Disposition Disposition (needs filled in before D/C Order can be placed): Home, Self Care
--- NOTE | 2024-04-11 19:28 | CON.PCM.GI_ITS ---
HPI Consult Data Date of Consult: 04/11/24 HPI Narrative Reason for Consultation: Abdominal pain HPI Narrative: TOMAS CEE, is a 54-year-old male with history of (he believes left) inguinal hernia repair presenting with worsening abdominal pain for the past 2 days. Patient states that at 2:30 AM on Wednesday morning he woke up because the stomach felt weird and he had vomiting. He is small bowel movement this time. He notes since then he has been having progressively worsening abdominal pain mostly in his right lower quadrant. His abdomen feels distended. He tried a suppository today and only has slight bowel movement. Does note his urine has been darker. He took some Advil for symptoms with no significant relief. He has felt a little feverish but his is checked his temperature and he is not actually had a fever. Today he has had increased pain. He states every 45 minutes he had waves of sharp pain. Is in his right lower quadrant does not radiate. He is continue to have nausea. He notes that 3 weeks ago he had an episode of what he believes to be food poisoning as he had multiple signs of vomiting and some mild diarrhea. He thought maybe that is what was happening again today. No other complaints or concerns reported at this time. He underwent CT scan abdomen pelvis that showed diffuse bowel wall thickening in his terminal ileum and cecum. He underwent repeat imaging with oral contrast and it showed improvement of small bowel edema with antibiotics. [facility], [facility] Home Medications ?Medication ?Instructions ?Recorded ?Last Taken ?Type amoxicillin 875 mg-potassium 1 tab PO BID 14 days #28 tabs 04/11/24 Unknown Rx clavulanate 125 mg tablet tamsulosin 0.4 mg capsule 0.4 mg PO QHS 30 days #30 caps 04/11/24 Unknown Rx Allergy/AdvReac Type Severity Reaction Status Date / Time No Known Allergies Allergy Verified 04/10/24 12:57 Surgical History H/O left inguinal hernia repair Social History Smoking Status: Never smoker ROS ROS Narrative Constitutional: Reports acute onset fatigue and weakness. No fever. HEENT: Reports systems reviewed and no addt'l complaints, except as documented Respiratory/Chest: No acute shortness of breath or respiratory distress or wheezing. CVS: No chest pain or pressure or tach Gastrointestinal: Denies GI bleed. Rest as described in HPI. Genitourinary: Incomplete emptying of bladder, acute retention of urine. Denies burning pain. Musculoskeletal: Denies acute joint pain or limited range of motion. No acute injury Neurologic: Denies seizure-like symptoms. skin: No ulcer. No rash Endocrinology: Reports systems reviewed and no addt'l complaints, except as documented Hematologic/Lymphatic: Reports systems reviewed and no addt'l complaints, except as documented Rest 14 ROS are negative except as mentioned in HPI Physical Exam Const alert, oriented x3 and no apparent distress General Appearance: cooperative and well developed HEENT normocephalic, head/scalp atraumatic and moist oral mucous membranes Eyes PERRL and EOMs intact bilaterally Neck no lymphadenopathy and supple Lymph Lymphatic: no lymphadenopathy noted and no lymphedema noted Resp normal respiratory effort, normal air movement and clear to auscultation bilaterally Cardio regular rate, regular rhythm, S1 normal heart sound, S2 normal heart sound and no murmurs GI GI Narrative: abdomen soft, mild tenderness, no organomegaly Extremity normal capillary refill, no clubbing, cyanosis or edema and no calf tenderness General Extremity: no tenderness to palpation of joints or extremities Skin General Skin Exam: no breakdown Neuro CN's II-XII intact bilaterally, no focal motor deficits, no sensory deficits noted and deep tendon reflexes 2+ bilaterally Motor Exam: strength 5/5 throughout and general weakness Psych thought process normal and cooperative Appearance: appropriate Lab / Micro Data 04/11/24 06:44 04/11/24 06:44 Labs: Laboratory Results - last 24 hr 04/10/24 15:25: Diff Path Review Reviewed, Magnesium 2.1 04/11/24 06:44: WBC 9.3, RBC 4.18 L, Hgb 12.8 L, Hct 37.0 L, MCV 88.5, MCH 30.6, MCHC 34.6, RDW Std Deviation 40.3, RDW Coeff of Citlali 12.5, Plt Count 222, MPV 9.3, Immature Gran % (Auto) 0.400, Neut % (Auto) 67.8, Lymph % (Auto) 16.6 L, M laura % (Auto) 13.8 H, Eos % (Auto) 1.1, Baso % (Auto) 0.3, Absolute Neuts (auto) 6.3, Absolute Lymphs (auto) 1.55, Nucleated RBC % 0, Sodium 139, Potassium 3.7, Chloride 110 H, Carbon Dioxide 22.0, Anion Gap 7, BUN 17, Creatinine 0.85, Estim Creat Clear Calc 106.29, Est GFR (MDRD) Af Amer 119, Est GFR (MDRD) Non-Af 99, BUN/Creatinine Ratio 19.9, Glucose 84, Calcium 8.5 Micro: Microbiology 04/11/24 12:30 Stool Stool Lactoferrin - Final 04/11/24 12:30 Stool Stool Occult Blood (SAY) - Final Occult Blood Positive Imaging Radiology Impression Abdomen CT 04/10/24 21:10 IMPRESSION: Acute inflammation right lower quadrant again noted essentially unchanged. Suboptimal opacification of the appendiceal lumen. Repeat scans through the right lower quadrant may be helpful. No evidence of perforation or abscess. Differential considerations still include both inflammatory bowel disease and appendicitis. Ileus. Electronically Signed: Dom Fragoso MD at 22:43 EDT , Assessment & Plan Assessment/Plan (1) Ileitis, terminal: (2) Urinary retention: PLAN: Plan This is 54-year-old gentleman being admitted for right lower quadrant abdominal pain for last 3 days along with vomiting and no BM for 1 day Acute inflammation of distal ileum, typhlitis and appendicitis CT abdomen with oral and IV contrast individually reviewed. Shows multiple loops of air distended small bowel loops, inflammation of distal ileum with circumferential thickening, appendix enlarged with mesoappendix infiltration of fat and typhlitis. Patient already evaluated by surgeon and thinks it is more right- sided inflammation as mentioned therefore treat medically with IV antibiotics. Differential diagnosis does include ischemic ileocolitis secondary to infection versus inflammatory bowel disease involving the large and small bowel. Patient is having bowel movements and is doing better from a clinical standpoint. I am okay with him having antibiotics. I will send blood work for IBD SGI along with blood work for vasculitis and hypercoagulable disorder. He should follow-up as an outpatient for MR enterography possible capsule endoscopy along with optimal endoscopy with biopsies. Charges/Coding Visit Charges Inpatient E&M: 10601 Init Hosp L3
[2024-04-11 19:48] LABS: Erythrocyte Sedimentation Rate 24 mm/hr (0-20)
[2024-04-11 19:49] VITALS: BP 114/69; PULSE 76; RESP 16; TEMP 36.7; O2SAT 96
[2024-04-13 13:08] LABS: Giardia Lamblia, Stool EIA Negative (Negative)
[2024-04-13 16:10] LABS: Anti-Mitochondrial AB <20.0 Units (0.0-20.0); Anti-Smooth Muscle ABS 9 Units (0-19)
[2024-04-14 06:10] LABS: Calprotectin, Stool 37 ug/g (0-120)
[2024-04-18 10:10] LABS: Anti-Cardiolipin Ab, IgG, Qn < 9 GPL U/mL (0-14); Anti-Cardiolipin Ab, IgM, Qn < 9 MPL U/mL (0-12); Anti-Thrombin 3 AG, Immunol 114 % (72-124); Antithrombin 3 Function 91 % (75-135); Beta-2-Glycoprotein I IgA <9 (0-25); Beta-2-Glycoprotein I IgG <9 (0-20); Beta-2-Glycoprotein I IgM <9 (0-32); Protein C Antigen 97 % (60-150); Protein C, Functional 106 % (73-180)
[2024-04-18 11:10] LABS: ACCA 21 units (0-90); ALCA 24 units (0-60); AMCA 18 units (0-100); HEPATITIS B SURFACE AG Negative (Negative); Hep C Antibodies Non Reactive (Non Reactive); Hepatitis A IgM Antibody Negative (Negative); Hepatitis B Core AB IgM Negative (Negative); gASCA 40 units (0-50)
[2024-04-18 14:10] LABS: Anti-Centromere B Ab <0.2 AI (0.0-0.9); Anti-Chromatin <0.2 AI (0.0-0.9); Anti-Jo <0.2 AI (0.0-0.9); Anti-Scleroderma-70 AB <0.2 AI (0.0-0.9); Anti-dsDNA Ab <1 IU/mL (0-9); Beef <0.10 kU/L (Class 0); Chocolate <0.10 kU/L (Class 0); Codfish <0.10 kU/L (Class 0); Corn <0.10 kU/L (Class 0); Egg, Whole <0.10 kU/L (Class 0); Milk (Cow) <0.10 kU/L (Class 0); Mussels <0.10 kU/L (Class 0); Peanut <0.10 kU/L (Class 0); Pork <0.10 kU/L (Class 0); RNP Ab <0.2 AI (0.0-0.9); SJOGREN'S Anti-SS-A test < 0.2 AI (0.0-0.9); SJOGREN'S Anti-SS-B test < 0.2 AI (0.0-0.9); Salmon <0.10 kU/L (Class 0); Shrimp <0.10 kU/L (Class 0); Smith Ab <0.2 AI (0.0-0.9); Soybean <0.10 kU/L (Class 0); Tuna <0.10 kU/L (Class 0); Wheat <0.10 kU/L (Class 0)
[2024-04-19 01:07] LABS: Albumin 3.3 g/dL (2.9-4.4); Alpha-1-Globulins 0.5 g/dL (0.0-0.4); Alpha-2-Globulins 0.9 g/dL (0.4-1.0); Cytoplasmic Ab (C-ANCA) <1:20 titer (Neg:<1:20); Deamidated Gliadin IgA 5 units (0-19); Deamidated Gliadin IgG 3 units (0-19); Endomysial Antibody IgA Negative (Negative); Gamma Globulin 1.2 g/dL (0.4-1.8); Immunoglobulin A 163 mg/dL (90-386); Immunoglobulin E < 2 IU/mL (6-495); Immunoglobulin G 1178 mg/dL (603-1613); Immunoglobulin M 34 mg/dL (20-172); Perinuclear Ab (P-ANCA) <1:20 titer (Neg:<1:20); QNTFERON TB Mitogen Value > 10.00 IU/mL (.); QNTFERON TB Nil Value 0.04 IU/mL (.); QNTFERON TB1+ Ag Value 0.03 IU/mL (.); QNTFERON TB2+ Ag Value 0.04 IU/mL (.); QNTIFERON TB Positive Criteria Negative (Negative); t-Transglutaminase IgA <2 U/mL (0-3)
== END 2024-04-11 20:30 | disposition home or self-care (01) | DRG 394 ==
LOC: ED 04-11 01:13 → MS3 04-11 01:17
PROVIDERS: Internal Medicine Gastroenterology; Admitting Provider Internal Medicine; Emergency Provider Emergency Medicine; Referring Provider Surgery; Visit Provider Student in an Organized Health Care Education/Training Program
DX: K50.00 Crohn's disease of small intestine without complications (principal); K35.80 Unspecified acute appendicitis; F17.220 Nicotine dependence, chewing tobacco, uncomplicated; R33.9 Retention of urine, unspecified
CPT/HCPCS: 36415; 74176; 74177; 80048; 80053; 80074; 81001; 81240; 81241; 82274; 82784; 82785; 83516; 83605; 83630; 83690; 83735; 83993; 84165; 85025; 85300; 85301; 85302; 85303; 85652; 86003; 86005; 86036; 86037; 86140; 86146; 86147; 86225; 86235; 86255; 86334; 86480; 86671; 87329; 87493; 94668; 96361; 96365; 96366; 96367; 96375; 96376; 99221; 99283; Q9967; A4216; G0378; J2405

== ENCOUNTER → 2024-04-26 | Outpatient (CLI) | payer OTHER, SELFPAY ==
[2024-04-26 12:29] LABS: AST(SGOT) 14 U/L (15-37); Alanine Aminotransfer ALT/SGPT 26 U/L (16-61); Albumin, Serum 3.9 g/dL (3.2-5.0); Alkaline Phosphatase 59 U/L (45-117); Bilirubin, Direct 0.13 mg/dL (0.00-0.30); Protein, Total 7.9 g/dL (6.4-8.2)
== END | disposition home or self-care (01) ==
PROVIDERS: Referring Provider Nurse Practitioner Acute Care; Visit Provider Nurse Practitioner Acute Care
DX: R17 Unspecified jaundice (principal); R74.8 Abnormal levels of other serum enzymes; R10.31 Right lower quadrant pain; K52.9 Noninfective gastroenteritis and colitis, unspecified; R93.5 Abnormal findings on diagnostic imaging of other abdominal regions, including retroperitoneum
CPT/HCPCS: 36415; 80076

== ENCOUNTER → 2024-06-12 | Outpatient (CLI) | payer OTHER, SELFPAY ==
--- NOTE | 2024-06-12 09:41 | MRI_ITS ---
EXAM: MR ABDOMEN AND PELVIS WITHOUT AND WITH INTRAVENOUS CONTRAST CLINICAL INDICATION: Unspecified jaundice TECHNIQUE: Multiplanar and multisequence MR images of the abdomen and pelvis without and with intravenous contrast. CONTRAST: 17 cc of Clariscan IV. COMPARISON: CT scan of the abdomen and pelvis 04/02/2024. FINDINGS: LOWER THORAX: Unremarkable. No pleural effusion. ABDOMEN: LIVER: Unremarkable. Normal morphology. No focal mass. GALLBLADDER AND BILE DUCTS: Unremarkable. No gallstones. No gallbladder distention or wall edema. No intra- or extrahepatic biliary ductal dilation. PANCREAS: Unremarkable. No focal cystic or solid mass. SPLEEN: Unremarkable. Normal size without focal cystic or solid mass. ADRENALS: Unremarkable. No nodules. KIDNEYS AND URETERS: Unremarkable. Normal renal size and position. No hydronephrosis. PELVIS: APPENDIX: No evidence of acute appendicitis. BLADDER: Unremarkable. PROSTATE: Unremarkable as visualized. No hypertrophy. No discrete nodule or mass. SEMINAL VESICLES: Unremarkable as visualized. No nodule or cyst. ABDOMEN and PELVIS: INTRAPERITONEAL SPACE: Unremarkable. No ascites or other fluid collection. VASCULATURE: Unremarkable. Abdominal aorta is non-dilated. LYMPH NODES: No enlarged lymph nodes. MRI/Enterography Abd/Pel IMPRESSION: Negative abdomen and pelvis MRI without and with intravenous contrast. Electronically Signed: Elijah Singer MD at 9:01 EST ,
[2024-06-12 10:09] VITALS: BP 132/82; PULSE 60; RESP 16; O2SAT 99; BMI 28.0
[2024-06-12] MEDS: Glucagon 1 MG/ML Syringe IV (11:29)
[2024-06-12] MEDS: 0.9% Saline Lock 10 ML Syringe IV (11:29)
[2024-06-12 11:45] VITALS: BP 128/95; PULSE 71; RESP 16; O2SAT 95
== END | disposition home or self-care (01) ==
LOC: MRI 09:12
PROVIDERS: Referring Provider Nurse Practitioner Acute Care; Visit Provider Nurse Practitioner Acute Care
DX: R17 Unspecified jaundice (principal); R74.8 Abnormal levels of other serum enzymes; R10.31 Right lower quadrant pain; K52.9 Noninfective gastroenteritis and colitis, unspecified; R93.5 Abnormal findings on diagnostic imaging of other abdominal regions, including retroperitoneum
CPT/HCPCS: 74183; 96374; A9575; A4216; J1610

== ENCOUNTER 2024-06-26 05:24 | Day surgery (SDC) | payer OTHER, SELFPAY ==
[2024-06-26] VITALS (8 sets, daily range): BP systolic 97–131; BP diastolic 74–83; PULSE 64–83; RESP 16–18; TEMP 36.1–36.7; O2SAT 94–98; BMI 29.8
--- NOTE | 2024-06-26 06:30 | COLBX_PTH ---
PATIENT: TOMAS CEE LOC: [facility] U#:[id number] AGE/SX: 54/M ROOM: RE06/26/[address]: Dr. Matthew Spencer DO : 1970 BED: DIS: 06/26/2024 SPEC #: [id number] RECD: 06/26/24 10:05 STATUS: JESSICA LOURDES #: [id number] KUNAL: 06/26/24 06:[address]: Matthew Spencer DEPT: SURGICAL PATHOLOGY RECD BY: Katya Barragan ENTERED: 06/26/24 10:49 SP TYPE: COLON BX OTHR DR: No Primary Care Phys Tissues: A - Ileum, NOS B - COLON BIOPSY Procedures: Surgery Specimen Level IV HEADER OPERATION: Colonoscopy with biopsy PRE-OP DIAGNOSIS: Abnormal CT of the abdomen TISSUE SUBMITTED: A- Terminal ileum biopsy, B- Random colonic biopsy MICROSCOPIC DIAGNOSIS A. Terminal ileum, biopsy: Fragments of small intestinal mucosa, no pathologic diagnosis. See comment. B. Colon, random biopsy: Fragments of colonic mucosa, no pathologic diagnosis. SJ. 06/27/2024 COMMENT A. Prominent lymphoid aggregates are noted. MICROSCOPIC DESCRIPTION Slides are reviewed. GROSS DESCRIPTION A. Received in fixative is one container labeled with the patient's name and designated Terminal ileum biopsy. The specimen consists of multiple irregular fragments of light stovall soft tissue that in aggregate measure 0.9 x 0.4 x 0.2 cm. The specimen is totally submitted in one cassette. B. Received in fixative is one container labeled with the patient's name and designated Random colonic biopsy. The specimen consists of multiple irregular fragments of light stovall soft tissue that in aggregate measure 1.2 x 0.5 x 0.2 cm. The specimen is totally submitted in one cassette. BW.mr 06/26/2024 TC:5 CPT:01670z3
--- NOTE | 2024-06-26 06:45 | PCM.HP.STD ---
HPI - General General Date of Admission: 06/26/24 Date of Service: 06/26/24 Chief Complaint: Abdominal pain HPI Narrative TOMAS CEE, is a 54 M who presents 54y/o male presents for follow-up post admission for acute onset RLQ abdominal pain on 04/11/2024. LABS 04/11/2024 HGB 12.8, ESR 24, T. Bili 1.2, ALP 122, CRP 123, pANCA negative, AMA negative, ASMA negative, TTG IgA & IgG negative, Total IgA WNL, ASCA negative Quantiferon 04/11/2024 negative HAV IgM 04/11/2024 negative HBVsAg 04/11/2024 negative HBV Core IgM 04/11/2024 negative HCV Ab 04/11/2024 negative STOOL 04/11/2024 Fecal Calprotectin 37, Giardia negative, Lactoferrin negative, C. Diff negative, OCCULT POSITIVE Is urine still dark? resolved Any h/o jaundice? denies Taking any NSAIDS prior to ED visit - reports he was taking Advil for the RLQ pain 1-2d prior to admission but none prior to this Any family history of IBD - denies - stools are back to formed - tolerating PO without difficulty - can have up to 4 BM daily - denies any abdominal distension - denies any diarrhea - denies any obstructive symptoms - denies any N/V - denies any weight loss - denies any heart or lung disease - denies any kidney disease [facility] Medical History Alcohol use Arthritis Gastric reflux Chewing tobacco dependence Home Medications ?Medication ?Instructions ?Recorded ?Last Taken ?Type tamsulosin 0.4 mg capsule 0.4 mg PO QHS 30 days #30 caps 04/11/24 Unknown Rx Allergy/AdvReac Type Severity Reaction Status Date / Time No Known Allergies Allergy Verified 06/26/24 05:55 Surgical History H/O left inguinal hernia repair Social History Smoking Status: Current every day smoker tobacco type: smokeless tobacco ROS ROS Narrative Constitutional: Reports acute onset fatigue and weakness. No fever. HEENT: Reports systems reviewed and no addt'l complaints, except as documented Respiratory/Chest: No acute shortness of breath or respiratory distress or wheezing. CVS: No chest pain or pressure or tach Gastrointestinal: Denies GI bleed. Rest as described in HPI. Genitourinary: Incomplete emptying of bladder, acute retention of urine. Denies burning pain. Musculoskeletal: Denies acute joint pain or limited range of motion. No acute injury Neurologic: Denies seizure-like symptoms. skin: No ulcer. No rash Endocrinology: Reports systems reviewed and no addt'l complaints, except as documented Hematologic/Lymphatic: Reports systems reviewed and no addt'l complaints, except as documented Rest 14 ROS are negative except as mentioned in HPI Vital Signs Vital Signs Vital Signs: 06/26/24 06:00 06/26/24 06:00 Temperature 98.0 F Temperature Source Temporal Pulse Rate 70 Respiratory Rate 18 Respiratory Pattern Normal Blood Pressure 131/83 H Blood Pressure Mean 99 Blood Pressure Source Monitor Blood Pressure Position Sitting Blood Pressure Location Right Arm Pulse Ox 98 Oxygen Delivery Method Room Air Weight Weight: 196 lb 3.382 oz Body Mass Index (BMI) 29.8 Physical Exam Const alert, oriented x3 and no apparent distress General Appearance: cooperative and well developed HEENT normocephalic, head/scalp atraumatic and moist oral mucous membranes Eyes PERRL and EOMs intact bilaterally Neck no lymphadenopathy and supple Lymph Lymphatic: no lymphadenopathy noted and no lymphedema noted Resp normal respiratory effort, normal air movement and clear to auscultation bilaterally Cardio regular rate, regular rhythm, S1 normal heart sound, S2 normal heart sound and no murmurs GI GI Narrative: abdomen soft, mild tenderness, no organomegaly Extremity normal capillary refill, no clubbing, cyanosis or edema and no calf tenderness General Extremity: no tenderness to palpation of joints or extremities Skin General Skin Exam: no breakdown Neuro CN's II-XII intact bilaterally, no focal motor deficits, no sensory deficits noted and deep tendon reflexes 2+ bilaterally Motor Exam: strength 5/5 throughout and general weakness Psych thought process normal and cooperative Appearance: appropriate Assessment & Plan Assessment/Plan (1) Abnormal CT of the abdomen: PLAN: Plan 54y/o male presents for follow-up post admission for acute onset RLQ abdominal pain on 04/11/2024. Dr. Spencer was consulted after a CT revealed diffuse bowel wall thickening of the TI and cecum. pANCA, ASCA were negative. He denies any family history of IBD. Follow-up imaging with oral contrast revealed improvement of SB edema with ATB. He was started on IV Zosyn and discharged with PO Augmentin x14 days. He reports significant improvement in symptoms with only a mild residual RLQ pain. He denies any abdominal distension, N/V, weight loss or bleeding and bowels have returned to baseline. He is agreeable to scheduling colonoscopy and MRE. In terms of elevated T. Bili and ALP; AMA, ASMA and acute hepatitis panel were unremarkable. He will repeat a liver panel at this time.
--- NOTE | 2024-06-26 06:46 | PCM.PRE.AN2 ---
ASA Classification* ASA Classification ASA Classification: 2 Assessment & Plan Anesthesia* Anesthesia Assessment Anesthesia Assessment: Discussed sedation and/or anesthesia options, risks, benefits, and alternatives with patient/parents/legal guardian/POA. Questions invited. The patient/parents/legal guardian/POA seems to understand and agrees to proceed with anesthesia plan. Reviewed the physical assessment, medical history, allergy history and patient home medications list prior to surgery/procedure/anesthetic and documented any changes. Performed airway and anesthesia risk assessments. Anesthesia Type Anesthesia Type: MAC History Source History Obtained from:: Patient and Chart Anesthesia Focused Assessment* Temperature: 98.0 F Pulse Rate: 70 Blood Pressure: 131/83 Respiratory Rate: 18 Pulse Ox: 98 Airway Assessment Mouth opens: >3 cm Mallampati Score: II Teeth Condition: Intact Neck Range of motion (ROM): Full ROM Focused Labs Anesthesia Preop lab: CBC WBC 9.3 K/mm3 (4.4-11.0) 04/11/24 06:44 RBC 4.18 M/mm3 (4.6-6.2) L 04/11/24 06:44 Hgb 12.8 g/dL (13.0-16.5) L 04/11/24 06:44 Hct 37.0 % (40-54) L 04/11/24 06:44 Plt Count 222 K/mm3 (150-450) 04/11/24 06:44 CHEMISTRY Potassium 3.7 mmol/L (3.5-5.1) 04/11/24 06:44 Sodium 139 mmol/L (136-145) 04/11/24 06:44 Magnesium 2.1 mg/dL (1.6-2.6) 04/10/24 15:25 BUN 17 mg/dL (7-18) 04/11/24 06:44 Creatinine 0.85 mg/dL (0.70-1.30) 04/11/24 06:44 Glucose 84 mg/dL (74-106) 04/11/24 06:44 COAG Pre-Assessment Diagnosis/Proposed Procedure Planned Operative Procedure(s): COLONOSCOPY Anesthesia History 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 When Was Last Pacemaker Check QUESTION #4 FULL TEXT: You/Your Family Experience fever (hyperthermia) with Anesthesia Last Oral Intake Last Oral intake: Last Oral Intake NPO since 02:30 06/26/24 06:00 Meds taken in AM with sips of No 06/26/24 06:00 water? 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 Female No 06/23/24 09:48 HX of Motion Sickness Yes 06/23/24 09:48 HX of N/V After Surgery No 06/23/24 09:48 Non-Smoker No 06/23/24 09:48 Duration of Surgery greater No 06/23/24 09:48 than 60 minutes Number of Risk Factors 1 06/23/24 09:48 PONV Score Low Risk 06/23/24 09:48 Height & Weight Height & Weight: Anesthesia: Height & Weight Height 5 ft 8 in 06/26/24 06:00 Weight: 89 kg 06/26/24 06:00 Body Mass Index (BMI) 29.8 06/26/24 06:00 Respiratory Assessment Respiratory Assessment - pattern generator operator: Respiratory Tract Infection Hx - pattern generator operator Hx Respiratory Tract Infection No 06/23/24 09:48 STOP Sleep Apnea STOP Sleep Apnea - pattern generator operator: STOP Sleep Apnea - pattern generator operator Hx Hypertension No 06/23/24 09:48 Hx Sleep Apnea No 06/23/24 09:48 CPAP BIPAP Do you snore loudly (louder No 06/23/24 09:48 than talking or can be heard Do you often feel tired/ No 06/23/24 09:48 fatigued/ sleepy during daytime? Has anyone observed you stop No 06/23/24 09:48 breathing during sleep? STOP Results Negative 06/23/24 09:48 QUESTION #5 FULL TEXT : Do you snore loudly (louder than talking or can be heard through closed doors)? 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 Specify any problems Hx of Preganancy in last 3 N/A 06/23/24 09:48 Months Nurse Filling Out Transfusion VCHRISTIN 06/23/24 09:48 & Questions: Date: 06/23/24 06/23/24 09:48 Time: 09:49 06/23/24 09:48 Patient unable to answer at this time (ie. confused, unrespo /Reproduction History /Reproductive History - pattern generator operator: /Reproductive Hx- pattern generator operator Hx Now No 06/23/24 09:48 Gestational Age (in weeks): EDC: Hx Hx Para Hx Section SAB No 06/23/24 09:48 PFSH Medical History Alcohol use Arthritis Gastric reflux Chewing tobacco dependence Home Medications ?Medication ?Instructions ?Recorded ?Last Taken ?Type tamsulosin 0.4 mg capsule 0.4 mg PO QHS 30 days #30 caps 04/11/24 Unknown Rx Allergy/AdvReac Type Severity Reaction Status Date / Time No Known Allergies Allergy Verified 06/26/24 05:55 Surgical History H/O left inguinal hernia repair Social History Smoking Status: Current every day smoker tobacco type: smokeless tobacco Review of Systems (Anesthesia) ROS Narrative System reviewed and no additional complaints, except as documented.
--- NOTE | 2024-06-26 07:15 | OP.CCLET_ITS ---
06/26/2024 No Primary Care Physician Re : Colonoscopy procedure for Terry Linares Dear Care Physician This procedure was performed on Wednesday, June 26, 2024. My impressions and recommendations are as follows: Impressions : - Congested mucosa in the recto-sigmoid colon and in the sigmoid colon. Biopsied. - Mild inflammation was found in the ileum secondary to ileitis. Biopsied. Recommendations : - Discharge patient to home. - Resume previous diet. - Continue present medications. - Await pathology results. - Repeat colonoscopy in 10 years for screening purposes. My findings are described in the full procedure note, which is enclosed. If I can be of further assistance, please feel free to contact me at . Sincerely, Matthew Spencer, 06/26/2024 7:14:10 AM This report has been signed electronically.
--- NOTE | 2024-06-26 07:15 | OP.COLON_ITS ---
Patient Name: Terry Linares Procedure Date: 06/26/2024 6:21 AM Date of : 1970 Age: 54 Procedure: Colonoscopy Indications: Abdominal pain in the right lower quadrant, Abnormal CT of the GI tract Providers: Matthew Spencer DO Referring MD: Matthew Spencer DO Medicines: Monitored Anesthesia Care Patient Profile: This is a 54 year old male. Refer to note in patient chart for documentation of history and physical. Last Colonoscopy: none. The patient's first colonoscopy is today. Complications: No immediate complications. Procedure: Pre-Anesthesia Assessment: - Prior to the procedure, a History and Physical was performed, and patient medications and allergies were reviewed. The patient is competent. The risks and benefits of the procedure and the sedation options and risks were discussed with the patient. All questions were answered and informed consent was obtained. Patient identification and proposed procedure were verified by the physician in the pre-procedure area. Mental Status Examination: alert and oriented. Airway Examination: normal oropharyngeal airway and neck mobility. Respiratory Examination: clear to auscultation. CV Examination: normal. Prophylactic Antibiotics: The patient does not require prophylactic antibiotics. Prior Anticoagulants: The patient has taken no anticoagulant or antiplatelet agents except for NSAID medication. ASA Grade Assessment: II - A patient with mild systemic disease. After reviewing the risks and benefits, the patient was deemed in satisfactory condition to undergo the procedure. The anesthesia plan was to use monitored anesthesia care (MAC). Immediately prior to administration of medications, the patient was re-assessed for adequacy to receive sedatives. The heart rate, respiratory rate, oxygen saturations, blood pressure, adequacy of pulmonary ventilation, and response to care were monitored throughout the procedure. The physical status of the patient was re-assessed after the procedure. After I obtained informed consent, the scope was passed under direct vision. Throughout the procedure, the patient's blood pressure, pulse, and oxygen saturations were monitored continuously. The Colonoscope was introduced through the anus and advanced to the terminal ileum. The colonoscopy was performed without difficulty. The patient tolerated the procedure well. The quality of the bowel preparation was adequate. The terminal ileum, ileocecal valve, appendiceal orifice, and rectum were photographed. Scope In: 6:58:55 AM Scope Withdrawal Time 0 hours 8 minutes 36 seconds Scope Out: 7:09:17 AM Total Procedure Duration Time 0 hours 10 minutes 22 seconds Findings: The perianal and digital rectal examinations were normal. An area of mildly congested mucosa was found in the recto-sigmoid colon and in the sigmoid colon. Biopsies were taken with a cold forceps for histology. Verification of patient identification for the specimen was done. Estimated blood loss was minimal. Patchy mild inflammation characterized by erythema and granularity was found in the terminal ileum. Biopsies were taken with a cold forceps for histology. Verification of patient identification for the specimen was done. Estimated blood loss was minimal. Impression: - Congested mucosa in the recto-sigmoid colon and in the sigmoid colon. Biopsied. - Mild inflammation was found in the ileum secondary to ileitis. Biopsied. Recommendation: - Discharge patient to home. - Resume previous diet. - Continue present medications. - Await pathology results. - Repeat colonoscopy in 10 years for screening purposes. Procedure Code(s): --- Professional --- 80758, Colonoscopy, flexible; with biopsy, single or multiple CPT copyright 2021 [employer]. All rights reserved. The codes documented in this report are preliminary and upon chief medical physicist review may be revised to meet current compliance requirements. Matthew Spencer DO 06/26/2024 7:14:10 AM This report has been signed electronically. Number of Addenda: 0 Note Initiated On: 06/26/2024 6:21 AM
--- NOTE | 2024-06-26 07:17 | PCM.POST.ANE ---
Anesthesia: Postop Eval I Current Vital Signs Temperature: 97 F Pulse Rate: 67 Blood Pressure: 101/74 Respiratory Rate: 16 Pulse Ox: 96 Oxygen Delivery Method: Room Air Assessment Airway patent: Yes Spontaneous unlabored respirations: Yes Mental status: Asleep nausea: No Vomiting: No Anesthesia Complication: No Fluid Hydration Crystalloid volume administer (ml): 30 Total IV fluid infused: 30 Progress Note Anesthesia document: Postop Eval 1 completed: Yes
--- NOTE | 2024-06-26 08:49 | PCM.POSTANE2 ---
Anesthesia Postop Eval I Sum Postop Eval Completion status Anesthesia document: Postop Eval 1 completed: Yes Anesthesia Postop Eval I Summary Anesthesia Postop Eval I Summary: Anesthesia Postop Eval I: Assessment Summary Airway patent Yes 06/26/24 07:18 [email or web address] Spontaneous unlabored Yes 06/26/24 07:18 [email or web address] respirations Mental status Asleep 06/26/24 07:18 [email or web address] nausea No 06/26/24 07:18 [email or web address] Vomiting No 06/26/24 07:18 [email or web address] Anesthesia Postop Eval I: Fluid Summary Crystalloid volume administer 30 06/26/24 07:18 [email or web address] (ml) Colloids volume administered ( ml) Blood Product volume administered (ml) Total IV fluid infused 30 06/26/24 07:18 [email or web address] Anesthesia Postop Eval I: Summary Notes Anesthesia Complication No 06/26/24 07:18 [email or web address] Anesthesia Complication Comment: Post-operative progress note Anesthesia: Postop Eval II Evaluation Mental status: Awake Pain Level: 0 nausea: No Vomiting: No
== END 2024-06-26 08:08 | disposition home or self-care (01) ==
LOC: EN 05:26 → AC 05:26
PROVIDERS: Visit Provider Internal Medicine Gastroenterology
PROC: 0DJD8ZZ Inspection of Lower Intestinal Tract, Via Natural or Artificial Opening Endoscopic (ICD-10-PCS; CPT 45378; principal; 2024-06-26 06:25)
DX: K63.89 Other specified diseases of intestine (principal); R10.31 Right lower quadrant pain; F17.220 Nicotine dependence, chewing tobacco, uncomplicated; Z79.899 Other long term (current) drug therapy
CPT/HCPCS: 45380; 88305; A4216; J2405